=== PATIENT | female | born 1995 | race Caucasian/White ===

== ENCOUNTER 2016-10-16 15:32 | Emergency (ER) | payer OTHER ==
[~2016-10-16] VITALS: Ht 160 cm; Wt 112.0 kg
[2016-10-16] MEDS ORDERED: PAXI40TA2 PO (15:53)
[2016-10-16] MEDS ORDERED: IBUP600T26 PO (16:13)
[2016-10-16] MEDS ORDERED: HYDR-4274 PO (16:13)
[2016-10-16] MEDS ORDERED: CLON0.2T PO (16:13)
[2016-10-16] MEDS ORDERED: PROP10TA56 PO (16:13)
[2016-10-16] MEDS ORDERED: ABIL1TAB5 PO (16:13)
[2016-10-16] MEDS ORDERED: LIDOCAINE W/EPINEPHRINE 1% 20ML VIAL SC ONE (17:15)
[2016-10-16] MEDS ORDERED: ADACEL/BOOSTRIX VACCINE (DIPHTH/PERTUSS/ACELL/TETANUS)0.5ML SYR (90715) IM ONE (17:15)
[2016-10-16 17:50] VITALS: BP 130/70
== END 2016-10-16 17:56 | disposition home or self-care (01) ==
LOC: M ED 16:45
DX: S51.812A Laceration without foreign body of left forearm, initial encounter (principal); W25.XXXA Contact with sharp glass, initial encounter; Y92.008 Other place in unspecified non-institutional (private) residence as the place of occurrence of the external cause; Y93.89 Activity, other specified; Y99.8 Other external cause status; F32.9 Major depressive disorder, single episode, unspecified; F41.9 Anxiety disorder, unspecified; Z79.899 Other long term (current) drug therapy